=== PATIENT | male | born 1980 | race Caucasian/White ===

== ENCOUNTER 2018-12-21 13:29 | Emergency (ER) | payer SELFPAY ==
[~2018-12-21] VITALS: Ht 182.9 cm; Wt 79.4 kg
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
[2018-12-21] MEDS ORDERED: NS IV 1000 ML 1,000 ML ONE (13:58)
[2018-12-21] MEDS ORDERED: CATHETER FLUSH 10 ML SYR IV PRN (14:00)
[2018-12-21] MEDS ORDERED: RECEIVED CONTRAST 20 ML VIAL IV SCH (14:00)
[2018-12-21] MEDS ORDERED: NS 50 ML (IVPB) BAG IV ONE (14:00)
[2018-12-21] MEDS ORDERED: IOPAMIDOL 61% 100 ML (ISOVUE 300) VIAL IV ONE (14:00)
[2018-12-21 14:16] LABS: BASOPHILS % (AUTO) 1 % (0-10); EOSINOPHILS % (AUTO) 6 % (0-10); HEMATOCRIT 34 % (40-54); HEMOGLOBIN 10.8 G/DL (13.3-17.7); LYMPHOCYTES % (AUTO) 16 % (12-44); MEAN CORPUSCULAR HEMOGLOBIN 28 PG (25-34); MEAN CORPUSCULAR HGB CONC 32 G/DL (32-36); MEAN CORPUSCULAR VOLUME 89 FL (80-99); MEAN PLATELET VOLUME 9.2 FL (7.4-10.4); MONOCYTES % (AUTO) 9 % (0-12); RED CELL DISTRIBUTION WIDTH 15.6 % (10.0-14.5); WHITE BLOOD COUNT 13.1 10^3/uL (4.3-11.0)
[2018-12-21 14:17] LABS: BASOPHILS # (AUTO) 0.1 10^3/uL (0.0-0.1); EOSINOPHILS # (AUTO) 0.8 10^3/uL (0.0-0.3); LYMPHOCYTES # (AUTO) 2.1 X 10^3 (1.0-4.0); MONOCYTES # (AUTO) 1.2 X 10^3 (0.0-1.0); NEUTROPHILS # (AUTO) 8.7 X 10^3 (1.8-7.8); NEUTROPHILS % (AUTO) 68 % (42-75)
[2018-12-21] MEDS ORDERED: KETOROLAC 30 MG/ML VIAL IVP ONE (14:30)
[2018-12-21 14:46] LABS: ALANINE AMINOTRANSFERASE 26 U/L (0-55); ALKALINE PHOSPHATASE 163 U/L (40-136); BILIRUBIN,TOTAL 0.4 MG/DL (0.1-1.0); BUN/CREATININE RATIO 9; CALCIUM 9.4 MG/DL (8.5-10.1); CARBON DIOXIDE 21 MMOL/L (21-32); CHLORIDE 97 MMOL/L (98-107); CREATININE SERUM 1.09 MG/DL (0.60-1.30); GFR ESTIMATED > 60; GLUCOSE 130 MG/DL (70-105); POTASSIUM 4.2 MMOL/L (3.6-5.0); SODIUM 136 MMOL/L (135-145)
[2018-12-21 14:47] LABS: ALBUMIN 4.2 GM/DL (3.2-4.5); TOTAL PROTEIN 7.4 GM/DL (6.4-8.2)
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
[2018-12-21 15:45] VITALS: BP 132/68
[2018-12-21 16:03] LABS: PLATELET COUNT 1278 10^3/uL (130-400)
[2018-12-21 16:45] VITALS: BP 124/72
[2018-12-21] MEDS ORDERED: APAP 300 MG/CODEINE 30 MG (TYLENOL #3) TAB PO ONE (16:45)
[2018-12-21] MEDS ORDERED: CEPH500C PO (16:46)
[2018-12-21] MEDS ORDERED: PANT40TA3 PO (16:46)
[2018-12-21] MEDS ORDERED: ACET-789 PO (16:46)
[2018-12-21] MEDS ORDERED: POLY17PO6 PO (16:46)
[2018-12-21] MEDS ORDERED: ONDA4TAB11 PO (16:46)
[2018-12-21] MEDS ORDERED: ARIP10TA17 PO (16:46)
[2018-12-21] MEDS ORDERED: SERT50TA9 PO (16:46)
[2018-12-21 17:45] VITALS: BP 126/67
[2018-12-21] MEDS ORDERED: CLINDAMYCIN INJECTION 300 MG in NS (IVPB) 50 ML IV ONE (17:45)
[2018-12-21] MEDS ORDERED: CLIN300C11 PO (17:57)
[2018-12-21] MEDS ORDERED: ASPI325T32 PO (18:00)
[2018-12-21 18:21] VITALS: BP 124/72
== END 2018-12-21 18:21 | disposition home or self-care (01) ==
LOC: ER FS 13:31
DX: T81.31XD Disruption of external operation (surgical) wound, not elsewhere classified, subsequent encounter (principal); D47.3 Essential (hemorrhagic) thrombocythemia; Z88.2 Allergy status to sulfonamides; Z88.8 Allergy status to other drugs, medicaments and biological substances
CPT/HCPCS: 36415; 71045; 74177; 80053; 83605; 85025; 87040; 87070; 87077; 87205

== ENCOUNTER 2019-02-18 12:38 | Emergency (ER) | payer OTHER ==
[~2019-02-18] VITALS: Ht 182.9 cm; Wt 77.1 kg
[~2019-02-18 12:38] MED LIST: ACET-789 PO; ARIP10TA17 PO; ASPI325T32 PO; CEPH500C PO; CLIN300C11 PO; ONDA4TAB11 PO; PANT40TA3 PO; POLY17PO6 PO; SERT50TA9 PO
--- OUTSIDE RECORDS SUMMARY | 2019-02-18 12:45 | XMS REPORT ---
Author Author Marli Stein [facility] Address [address] [address] Care Team Providers Care Grounds And Nursery Specialist Name Role Phone Marli Stein PCP Assessments SunOct 31 07:00:00 EST 2019: family support, employment, self-care and independence Health Concerns No Known Health Concerns Allergies No Known Allergy Information Encounters Program Name Primary Diagnosis Admission Date/Time Discharge Date/Time ADMISSION PROGRAM Delusional disorder, persecutory type, multiple episodes, currently in acute episode SunOct 31 10:03:00 EST 2018Jan 27 11:06:00 EDT 2019 Immunizations No Known Immunizations Lab Results No Known Laboratory Results Medical Equipment No Known Medical Equipment Medications No Known Medication Information Treatment Plan Interventions ADULT THERAPY SERVICE BUNDLE - Provide the following services 1-3 times each week: + [id number] Psychotherapy, 16-37 Minutes + 61704 Psychotherapy, 38-52 Minutes + 08459 Psychotherapy, 53+ Minutes + 87969 Psychotherapy for Crisis 31-74 Minutes + 30788 Each Add'l 30 Min Crisis Psychotherapy + 69580 Group Therapy + 03420 Psychological Testing + 10819 Case Conf w/Clt NN-Physician + [id number] Case Conf w/o Clt + Fam w/MD + [id number] Case Conf w/o Clt w/MD + [id number] Psychosocial Adult Group + [id number] TCM - Targeted Case Management ADULT CASE MANAGEMENT SERVICE [facility]DLE - Provide the following services 1-3 times each week: + [phone] Psychological Testing + [phone] Case Conf w/Clt nn-Physician + [id number] Case Conf w/o clt + family w/MD + [id number] Case Conf no Clt, no MD, w/QMHP + [id number] CPST Adult + [id number] Strength Based Case Mgmt + [id number] TCM - Targeted Case Management Engage with treatment team to build rapport. Learn and practice coping skills to reduce symptoms and improve functioning. The following Services will be utilized 1 - 3 times until goal is reached: Problems Active Concerns* Mental health disorder* Code: [id number] * Start Date: SunOct 31 07:00:00 EST 2018 Procedures No Known Procedures Social History Social History Observation Description Date Smoking Status Never Smoked SunOct 31 07:00:00 EST 2018 Sex Male Sat Jun 27 08:00:00 EDT 1980 Vital Signs No Known Vitals
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
[2019-02-18] MEDS ORDERED: NS 100 ML (IVPB) BAG IV ONE (13:15)
[2019-02-18] MEDS ORDERED: IOHEXOL 350 MG/ML 100 ML (OMNIPAQUE 350) VIAL IV ONE (13:15)
[2019-02-18] MEDS ORDERED: HOLD METFORMIN - RECEIVED CONTRAST 20 ML VIAL IV SCH (13:15)
[2019-02-18] MEDS ORDERED: CATHETER FLUSH 10 ML SYR IV PRN (13:15)
[2019-02-18 14:07] LABS: WHITE BLOOD COUNT 10.8 10^3/uL (4.3-11.0)
[2019-02-18 14:08] LABS: BASOPHILS # (AUTO) 0.1 10^3/uL (0.0-0.1); BASOPHILS % (AUTO) 1 % (0-10); EOSINOPHILS # (AUTO) 0.4 10^3/uL (0.0-0.3); EOSINOPHILS % (AUTO) 4 % (0-10); HEMATOCRIT 37 % (40-54); HEMOGLOBIN 11.8 G/DL (13.3-17.7); LYMPHOCYTES # (AUTO) 1.7 X 10^3 (1.0-4.0); LYMPHOCYTES % (AUTO) 16 % (12-44); MEAN CORPUSCULAR HEMOGLOBIN 28 PG (25-34); MEAN CORPUSCULAR HGB CONC 32 G/DL (32-36); MEAN CORPUSCULAR VOLUME 88 FL (80-99); MEAN PLATELET VOLUME 10.5 FL (7.4-10.4); MONOCYTES # (AUTO) 1.3 X 10^3 (0.0-1.0); MONOCYTES % (AUTO) 12 % (0-12); NEUTROPHILS # (AUTO) 7.3 X 10^3 (1.8-7.8); NEUTROPHILS % (AUTO) 68 % (42-75); PLATELET COUNT 532 10^3/uL (130-400); RED CELL DISTRIBUTION WIDTH 14.5 % (10.0-14.5)
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
[2019-02-18 15:47] VITALS: BP 112/72
[2019-02-20 11:28] LABS: CARBON DIOXIDE 31 MMOL/L (21-32); CHLORIDE 100 MMOL/L (98-107); POTASSIUM 4.1 MMOL/L (3.6-5.0); SODIUM 141 MMOL/L (135-145)
[2019-02-20 11:29] LABS: ALANINE AMINOTRANSFERASE 142 U/L (0-55); ALBUMIN 3.9 GM/DL (3.2-4.5); ALKALINE PHOSPHATASE 209 U/L (40-136); BILIRUBIN,TOTAL 0.4 MG/DL (0.1-1.0); BUN/CREATININE RATIO 14; CALCIUM 9.3 MG/DL (8.5-10.1); CREATININE SERUM 0.92 MG/DL (0.60-1.30); GFR ESTIMATED > 60; GLUCOSE 142 MG/DL (70-105); TOTAL PROTEIN 7.3 GM/DL (6.4-8.2)
== END 2019-02-18 15:47 | disposition home or self-care (01) ==
LOC: EDUNIT# 12:38 → ER FS 12:41
DX: T81.89XA Other complications of procedures, not elsewhere classified, initial encounter (principal); F32.9 Major depressive disorder, single episode, unspecified; Z88.2 Allergy status to sulfonamides; Z88.8 Allergy status to other drugs, medicaments and biological substances; Z79.82 Long term (current) use of aspirin; Z93.1 Gastrostomy status; Z98.890 Other specified postprocedural states
CPT/HCPCS: 36415; 74177; 80053; 85025; 87040

== ENCOUNTER 2019-03-06 14:43 | Emergency (ER) | payer OTHER ==
[~2019-03-06] VITALS: Ht 182.9 cm; Wt 77.1 kg
[2019-03-06 15:29] LABS: HEMATOCRIT 38 % (40-54); HEMOGLOBIN 12.1 G/DL (13.3-17.7); MEAN CORPUSCULAR HEMOGLOBIN 28 PG (25-34); MEAN CORPUSCULAR HGB CONC 32 G/DL (32-36); MEAN CORPUSCULAR VOLUME 86 FL (80-99); WHITE BLOOD COUNT 11.2 10^3/uL (4.3-11.0)
[2019-03-06 15:30] LABS: BASOPHILS # (AUTO) 0.1 10^3/uL (0.0-0.1); BASOPHILS % (AUTO) 1 % (0-10); EOSINOPHILS # (AUTO) 0.4 10^3/uL (0.0-0.3); EOSINOPHILS % (AUTO) 4 % (0-10); LYMPHOCYTES # (AUTO) 2.4 X 10^3 (1.0-4.0); LYMPHOCYTES % (AUTO) 21 % (12-44); MEAN PLATELET VOLUME 9.5 FL (7.4-10.4); MONOCYTES # (AUTO) 1.2 X 10^3 (0.0-1.0); MONOCYTES % (AUTO) 11 % (0-12); NEUTROPHILS # (AUTO) 7.1 X 10^3 (1.8-7.8); NEUTROPHILS % (AUTO) 63 % (42-75); PLATELET COUNT 506 10^3/uL (130-400); RED CELL DISTRIBUTION WIDTH 14.1 % (10.0-14.5)
[2019-03-06 15:48] LABS: INR 0.9 (0.8-1.4); PROTHROMBIN TIME PATIENT 12.4 SEC (12.2-14.7)
[2019-03-06 15:50] LABS: CARBON DIOXIDE 28 MMOL/L (21-32); CHLORIDE 99 MMOL/L (98-107); POTASSIUM 4.2 MMOL/L (3.6-5.0); SODIUM 139 MMOL/L (135-145)
[2019-03-06 15:51] LABS: ALANINE AMINOTRANSFERASE 282 U/L (0-55); ALBUMIN 4.3 GM/DL (3.2-4.5); ALKALINE PHOSPHATASE 225 U/L (40-136); BILIRUBIN,TOTAL 0.2 MG/DL (0.1-1.0); BUN/CREATININE RATIO 16; CALCIUM 9.1 MG/DL (8.5-10.1); CREATININE SERUM 0.94 MG/DL (0.60-1.30); GFR ESTIMATED > 60; GLUCOSE 149 MG/DL (70-105); TOTAL PROTEIN 7.6 GM/DL (6.4-8.2)
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
[2019-03-06 16:33] VITALS: BP 113/70
[2019-03-08 13:29] LABS: HEPATITIS C ANTIBODY C Non-Reactive (Non-Reactive)
== END 2019-03-06 16:33 ==
LOC: EDUNIT# 14:43 → ER FS 14:45
DX: D64.9 Anemia, unspecified (principal); R94.5 Abnormal results of liver function studies; J45.909 Unspecified asthma, uncomplicated; F41.9 Anxiety disorder, unspecified; F32.9 Major depressive disorder, single episode, unspecified; Z88.2 Allergy status to sulfonamides; Z88.8 Allergy status to other drugs, medicaments and biological substances; Z79.82 Long term (current) use of aspirin; Z90.3 Acquired absence of stomach [part of]
CPT/HCPCS: 36415; 80053; 80074; 85025; 85610; 85730